=== PATIENT | male | born 1965 | race American Indian/Alaskan Native ===

== ENCOUNTER 2017-04-17 13:52 | Emergency (ER) | payer MEDICARE, MEDICAID ==
[2017-04-17 14:59] VITALS: BP 111/84
[2017-04-17] MEDS ORDERED: Tetracaine HCl/PF 0.5% 4 ML Bottle EYELF ONE (15:18)
--- NOTE | 2017-04-17 15:38 | EDM.PDOC ---
ED HPI GENERAL MEDICAL PROBLEM - General Chief Complaint: Eye Problems Stated Complaint: [id number] SOMETHING IN EYE Time Seen by Provider: 04/17/17 15:15 Source of Information: Reports: Patient History Limitations: Reports: No Limitations - History of Present Illness INITIAL COMMENTS - FREE TEXT/NARRATIVE: foreign body in left eye Onset Date: 04/16/17 Duration: Constant, Getting Worse Location: Reports: Face (left eye) Quality: Reports: Ache, Dull Severity: Moderate Improves with: Reports: None Worsens with: Reports: None Left Eye Pain Score (Numeric/FACES): 5 - Related Data Allergies Allergy/AdvReac Type Severity Reaction Status Date / Time lorazepam [From Ativan] AdvReac restless Verified 04/17/17 14:42 Home Meds: Home Meds Acetaminophen/oxyCODONE [Roxicet 325-5 MG/5 ML Soln] 5 ml PO Q4H PRN 12/17/13 [ History] Albuterol Neb 1 ampule INH TID 01/19/14 [History] Levothyroxine [Synthroid] 88 mcg PO ACBREAKFAST 04/17/17 [History] Omeprazole [Omeprazole] 1 tab PO DAILY 04/17/17 [History] Past Medical History HEENT History: Reports: None Cardiovascular History: Reports: None Respiratory History: Reports: COPD Gastrointestinal History: Reports: GERD Genitourinary History: Reports: None Musculoskeletal History: Reports: None Neurological History: Reports: None Endocrine/Metabolic History: Reports: Hypothyroidism Hematologic History: Reports: None Immunologic History: Reports: None Oncologic (Cancer) History: Reports: Other (See Below) Other Oncologic History: throat cancer with surgery, "voice box removed". Dermatologic History: Reports: None - Past Surgical History HEENT Surgical History: Reports: None Cardiovascular Surgical History: Reports: None GI Surgical History: Reports: Cholecystectomy Social & Family History - Tobacco Use Smoking Status *Q: Unknown Ever Smoked Years of Tobacco use: 18 Used Tobacco, but Quit: Yes Month Tobacco Last Used: 2008 Second Hand Smoke Exposure: No - Caffeine Use Caffeine Use: Reports: Coffee - Alcohol Use Days Per Week of Alcohol Use: 0 - Recreational Drug Use Recreational Drug Use: No Drug Use in Last 12 Months: Yes Recreational Drug Type: Reports: Marijuana/Hashish Recreational Drug Use Frequency: Daily ED ROS GENERAL - Review of Systems Review Of Systems: ROS reveals no pertinent complaints other than HPI. ED EXAM GENERAL W FULL EYE - Physical Exam Exam: See Below Exam Limited By: No Limitations General Appearance: Alert, WD/WN, Moderate Distress, Thin Eye Exam: Left Eye: Conjunctival Injection, Bilateral Eye: EOMI, PERRL Eyelids: Bilateral: Normal Appearance Conjunctiva & Sclera: Left: Conjunctival Edema, Foreign Body Cornea Exam: Left: Foreign Body Extraocular Movements: Bilateral: Intact Pupils: Normal Accommodation Pupillary Size: Bilateral: 4 mm Pupillary Reaction: Bilateral: Brisk Ears: Normal External Exam, Normal Canal, Hearing Grossly Normal, Normal TMs Nose: Normal Inspection, Normal Mucosa, No Blood Throat/Mouth: Normal Inspection, Normal Lips, Normal Teeth, Normal Gums, Normal Oropharynx, Normal Voice, No Airway Compromise Head: Atraumatic, Normocephalic Neck: Normal Inspection, Supple, Non-Tender, Full Range of Motion Respiratory/Chest: No Respiratory Distress, Lungs Clear, Normal Breath Sounds, No Accessory Muscle Use, Chest Non-Tender Cardiovascular: Normal Peripheral Pulses, Regular Rate, Rhythm, No Edema, No Gallop, No JVD, No Murmur, No Rub GI/Abdominal: Normal Bowel Sounds, Soft, Non-Tender, No Organomegaly, No Distention, No Abnormal Bruit, No Mass (Male) Exam: Deferred Rectal (Males) Exam: Deferred Back Exam: Normal Inspection, Full Range of Motion, NT Extremities: Normal Inspection, Normal Range of Motion, Non-Tender, Normal Capillary Refill, No Pedal Edema Neurological: Alert, Oriented, CN II-XII Intact, Normal Cognition, Normal Gait, Normal Reflexes, No Motor/Sensory Deficits Psychiatric: Normal Affect, Normal Mood Skin Exam: Warm, Dry, Intact, Normal Color, No Rash Lymphatic: No Adenopathy ED EYE w/ Add Procedure - Eye Procedure Alcaine Drops Administered: Yes Eye FB Removal: Removal w/ Needle Antibiotic Oinment/Drps Admin: Left Eye Progress: small metalic foreign body removed from left corneal margin Course - Vital Signs Last Recorded V/S: Last Vital Signs Temp 36.4 C 04/17/17 14:40 Pulse 84 04/17/17 14:40 Resp 18 04/17/17 14:40 BP 111/84 04/17/17 14:40 Pulse Ox 100 04/17/17 14:40 - Orders/Labs/Meds Orders: Active Orders 24 hr Category Date Time Status Gentamicin [Gentak 0.3% Ophth Oint] Med 04/17/17 15:31 Once 1 gm EYELF ONETIME ONE Medication Orders Gentamicin Sulfate (Gentak 0.3% Ophth Oint) 1 gm EYELF ONETIME ONE Stop: 04/17/17 15:32 Meds: Medications Generic Name Dose Route Start Last Admin Trade Name Freq PRN Reason Stop Dose Admin Gentamicin Sulfate 1 gm 04/17/17 15:31 Gentak 0.3% Ophth Oint EYELF 04/17/17 15:32 ONETIME ONE Discontinued Medications Generic Name Dose Route Start Last Admin Trade Name Freq PRN Reason Stop Dose Admin Tetracaine HCl 1 ml 04/17/17 15:18 Tetracaine 0.5% Steri-Unit Aster EYELF 04/17/17 15:19 ASDIRECTED ONE Departure - Departure Time of Disposition: 15:34 Disposition: Home, Self-Care 01 Condition: Fair Clinical Impression: Foreign body of left eye Qualifiers: Encounter type: initial encounter Qualified Code(s): T15.92XA - Foreign body on external eye, part unspecified, left eye, initial encounter - Discharge Information Instructions: Eye Foreign Body, [id number] Care Plan Goals: The patient was advised of the examination results during the visit. A small metalic foreign body was removed during the visit. The patient was discharged with Gentak Ophthalmic Ointment to apply 1/4 inch ribbon to the lower eyelid 4 times per day for 7 days. If the patient has any additional symptoms or concerns , the patient should follow-up with his primary care facility or return to the emergency department. - My Orders Last 24 Hours: My Active Orders 04/17/17 15:31 Gentamicin [Gentak 0.3% Ophth Oint] 1 gm EYELF ONETIME ONE - Assessment/Plan Last 24 Hours: My Active Orders 04/17/17 15:31 Gentamicin [Gentak 0.3% Ophth Oint] 1 gm EYELF ONETIME ONE
== END 2017-04-17 15:45 | disposition home or self-care (01) ==
LOC: DL.ED 13:52
DX: T15.92XA Foreign body on external eye, part unspecified, left eye, initial encounter (principal); J44.9 Chronic obstructive pulmonary disease, unspecified; K21.9 Gastro-esophageal reflux disease without esophagitis; E03.9 Hypothyroidism, unspecified; Z79.899 Other long term (current) drug therapy; Z88.8 Allergy status to other drugs, medicaments and biological substances; Z90.49 Acquired absence of other specified parts of digestive tract
CPT/HCPCS: 65220; 99283; A9270

== ENCOUNTER 2021-01-15 18:33 | Emergency (ER) | payer MEDICARE, MEDICAID ==
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
[2021-01-15] MEDS ORDERED: Acetaminophen Soln 160 MG/5 ML UD Cup PO ONE (20:02)
[2021-01-15 20:22] VITALS: BP 158/96; PULSE 87
--- NOTE | 2021-01-15 20:39 | EDM.PDOC ---
ED HPI GENERAL MEDICAL PROBLEM - General Chief Complaint: Upper Extremity Injury/Pain Stated Complaint: POSSIBLE BROKEN RIGHT HAND Time Seen by Provider: 01/15/21 19:15 Source of Information: Reports: Patient, RN History Limitations: Reports: No Limitations - History of Present Illness INITIAL COMMENTS - FREE TEXT/NARRATIVE: Large TV fell on outer right hand, pain [employer], has not taken anything for pain Right Wrist Pain Score (Numeric/FACES): 6 - Related Data Allergies Allergy/AdvReac Type Severity Reaction Status Date / Time lorazepam [From Ativan] AdvReac restless Verified 01/15/21 19:43 Home Meds: Home Meds Levothyroxine [Synthroid] 88 mcg PO ACBREAKFAST 04/17/17 [History] Omeprazole 1 tab PO BID 04/17/17 [History] Budesonide [Pulmicort] 2 ml INH BID 11/24/18 [History] Formoterol Fumarate [Perforomist] 2 ml INH BID 11/24/18 [History] Hydrocodone/Acetaminophen [Hydrocodon-Acetamin 7.5-325/15] 15 ml PO Q6HR PRN 11/24/18 [History] Ipratropium/Albuterol Sulfate [Iprat-Albut 0.5-3(2.5) mg/3 ml] 3 ml INH Q4HR PRN 11/24/18 [History] Past Medical History HEENT History: Reports: None Cardiovascular History: Reports: None Respiratory History: Reports: COPD Gastrointestinal History: Reports: GERD Genitourinary History: Reports: None Musculoskeletal History: Reports: None Neurological History: Reports: None Endocrine/Metabolic History: Reports: Hypothyroidism Hematologic History: Reports: None Immunologic History: Reports: None Oncologic (Cancer) History: Reports: Other (See Below) Other Oncologic History: throat cancer with surgery, "voice box removed". Dermatologic History: Reports: None - Past Surgical History HEENT Surgical History: Reports: None, Other (See Below) Other HEENT Surgeries/Procedures: Throat ca, with a trach Cardiovascular Surgical History: Reports: None GI Surgical History: Reports: Cholecystectomy Social & Family History - Family History Family Medical History: No Pertinent Family History - Tobacco Use Tobacco Use Status *Q: Former Tobacco User Used Tobacco, but Quit: Yes Month/Year Tobacco Last Used: 2006 - Caffeine Use Caffeine Use: Reports: Coffee - Recreational Drug Use Recreational Drug Use: No Review of Systems - Review of Systems Review Of Systems: Comprehensive ROS is negative, except as noted in HPI. ED EXAM, GENERAL - Physical Exam Exam: See Below Exam Limited By: No Limitations General Appearance: Alert, Anxious, Mild Distress Eye Exam: Bilateral Eye: EOMI Ears: Hearing Grossly Normal Nose: Normal Inspection Throat/Mouth: No: Normal Voice (trach present) Neck: Normal Inspection, Full Range of Motion Respiratory/Chest: No Respiratory Distress Cardiovascular: Normal Peripheral Pulses, Regular Rate, Rhythm Neurological: Alert, Oriented, Normal Cognition Psychiatric: Anxious Skin Exam: Warm, Dry, Ecchymosis (light redness, lateral right hand, no swelling) Course - Vital Signs Last Recorded V/S: Last Vital Signs Temp 98.1 F 01/15/21 18:53 Pulse 87 01/15/21 20:21 Resp 16 01/15/21 20:21 BP 158/96 H 01/15/21 20:21 Pulse Ox 100 01/15/21 20:21 - Orders/Labs/Meds Meds: Medications Discontinued Medications Generic Name Dose Route Start Last Admin Trade Name Clarence PRN Reason Stop Dose Admin Acetaminophen 640 mg 01/15/21 20:02 01/15/21 20:19 Acetaminophen Soln 160 Mg/5 Ml Ud Cup PO 01/15/21 20:03 640 mg ONETIME ONE Administration Departure - Departure Time of Disposition: 20:36 Disposition: Home, Self-Care 01 Condition: Good Clinical Impression: Contusion of hand Qualifiers: Encounter type: initial encounter Laterality: right Qualified Code(s): S60.221A - Contusion of right hand, initial encounter - Discharge Information *PRESCRIPTION DRUG MONITORING PROGRAM REVIEWED*: No *COPY OF PRESCRIPTION DRUG MONITORING REPORT IN PATIENT CRYSTAL: No Instructions: Contusion, [id number] Forms: ED Department Discharge Additional Instructions: cold pack ana wrap for comfort elevate tonight activity as tolerated tylenol every 4 hours as needed for discomfort recheck clinic one week if continued pain recheck BP Sepsis Event Note (ED) - Evaluation Sepsis Screening Result: No Definite Risk - Focused Exam Vital Signs: Vital Signs Temp Pulse Resp BP Pulse Ox 01/15/21 20:21 87 16 158/96 H 100 01/15/21 18:53 98.1 F 90 18 166/109 H 100
== END 2021-01-15 20:48 | disposition home or self-care (01) ==
LOC: DL.ED 18:33
DX: S60.221A Contusion of right hand, initial encounter (principal); K21.9 Gastro-esophageal reflux disease without esophagitis; E03.9 Hypothyroidism, unspecified; Z79.899 Other long term (current) drug therapy; Z88.5 Allergy status to narcotic agent; Z87.891 Personal history of nicotine dependence; W20.8XXA Other cause of strike by thrown, projected or falling object, initial encounter
CPT/HCPCS: 73110; 73130; 99282; 99283; A9270

== ENCOUNTER 2022-05-04 00:21 | Emergency (ER) | payer MEDICARE, MEDICAID ==
[2022-05-04 00:43] VITALS: BP 172/109; PULSE 95
== END 2022-05-04 01:00 | disposition home or self-care (01) ==
LOC: DL.ED 00:21
DX: R06.02 Shortness of breath (principal); J44.9 Chronic obstructive pulmonary disease, unspecified; Z88.8 Allergy status to other drugs, medicaments and biological substances; Z79.899 Other long term (current) drug therapy
CPT/HCPCS: 99283; 99284